=== PATIENT | female | born 1950 | race Two or more races ===

== ENCOUNTER 2022-06-05 14:09 | Emergency (ER) | payer BC, OTHER ==
[~2022-06-05] VITALS: Ht 160 cm; Wt 65.0 kg
[2022-06-05 14:49] VITALS: BP 153/78
== END 2022-06-05 15:58 | disposition home or self-care (01) ==
LOC: ER 14:09
DX: S05.12XA Contusion of eyeball and orbital tissues, left eye, initial encounter (principal); E11.9 Type 2 diabetes mellitus without complications; Z88.8 Allergy status to other drugs, medicaments and biological substances; W01.0XXA Fall on same level from slipping, tripping and stumbling without subsequent striking against object, initial encounter; Y93.89 Activity, other specified; Y92.89 Other specified places as the place of occurrence of the external cause; Y99.8 Other external cause status
CPT/HCPCS: 70450; 70486